=== PATIENT | male | born 1975 ===

== ENCOUNTER 2024-01-06 22:10 | Emergency (ER) | payer OTHER, SELFPAY ==
[2024-01-06 22:21] VITALS: BP 112/71; PULSE 85; RESP 14; TEMP 36.8; O2SAT 97; BMI 31.9
[2024-01-06 22:52] LABS: IDNOW Serial# 6674DD1D; Strep A Nucleic Acid Negative (Negative)
[2024-01-06 23:18] LABS: COVID-19 Test Negative (Negative); IDNOW Serial# 08D9AD1C
[2024-01-06 23:19] LABS: IDNOW Serial# 152EDE1D; Influenza A Negative (Negative); Influenza B2 Negative (Negative)
--- NOTE | 2024-01-07 00:10 | ED_ITS ---
HPI - General Adult General Chief complaint: General Medical Stated complaint: throat issues Time Seen by Provider: 01/07/24 00:03 Source: patient and family Mode of arrival: ambulatory Limitations: no limitations History of Present Illness HPI narrative: 48 yo male no PMH exposed to sick niece here with runny nose and mild sore throat but mostly c/o bilateral swollen lymph nodes in neck that have gotten bigger right greater than left, subjective fever. MD complaint: swollen glands Onset (ago): week(s) (1) Location: neck Radiation: non-radiation Severity: mild Quality: dull Pain Consistency: intermittent Relieving factors: none Exacerbating factors: none Associated symptoms: fever/chills Treatments prior to arrival: none Related Data Previous Rx's Medication Instructions Recorded azithromycin 250 mg tablet 250 mg PO DAILY 4 days #4 tabs 01/07/24 Allergies Allergy/AdvReac Type Severity Reaction Status Date / Time Penicillins [PENICILLINS] Allergy Mild HIVES Verified 01/06/24 22:27 sulfamethoxazole Allergy Mild HIVES Verified 01/06/24 22:27 [From BACTRIM] trimethoprim [From BACTRIM] Allergy Mild HIVES Verified 01/06/24 22:27 penicillin G Allergy Unknown swelling Verified 01/06/24 22:27 Review of Systems Review of Systems: Constitutional : pos Fever, No Chills, No Fatigue ENT/Mouth : pos sore throat, pos Rhinorrhea, pos lymphadenopathy Eyes: No Eye Pain, No Swelling, No Redness Cardiovascular : No Chest Pain, No SOB, No Dyspnea on Exertion Respiratory : No Cough, No Sputum Gastrointestinal : No Nausea, No Vomiting, No Diarrhea, No abdominal Pain Genitourinary : No Dysuria, No Urinary Frequency, No Hematuria, Musculoskeletal : No joint pain, No Myalgias, No Joint Swelling Skin : No Skin Lesions, No rash Neuro : No Weakness, No Numbness, No Dizziness, positive Headache Psych : No Anxiety/Panic, No Depression All other systems reviewed and are negative [facility] Past Medical History Attestation statement: The following information was validated with the patient. Medical History No pertinent past medical history Social History Social History (Updated 01/07/24 @ 00:16 by Danae Brown DO) Patient Tobacco Use Status: Never used Tobacco Physical Exam ED Vital Signs: Vital Signs - 24 hr 01/06/24 22:21 Temperature 98.3 F Pulse Rate 85 Respiratory Rate 14 Blood Pressure 112/71 Pulse Oximetry 97 BMI result Body Mass Index 31.9 Appearance: Alert. Oriented X3. No acute distress. Eyes: Pupils equal, round and reactive to light. ENT: Pharynx normal. no erythema or exudates Neck: bilateral anterior cervical chain lymphadenopathy noted ttp R > L R is about 2cm no submandibular or sublingual swelling no stridor normal ROM CVS: Normal heart rate and rhythm. Pulses normal. Respiratory: No respiratory distress. Breath sounds normal. Abdomen: Soft and nontender. Skin: Skin warm and dry. Normal skin color. Extremities: No lower extremity edema. Neuro: Oriented X 3. No motor deficit. No sensory deficit. Medical Decision Making Medical Decision Making [facility] Narrative: 48 yo male with no sig PMH here with c/o URI symptoms and worsening anterior c ervical lymphadenopathy at this time will need viral panel, strep throat and start on abx with close PCP follow up and to follow up if no improvement after abx treatment. Differential Diagnosis Differential Diagnoses: The differential diagnosis associated with the presentation includes viral, lymphadenitis Admission/Observation Consideration of admission/observation: Escalation of care including admission/observation considered Lab Data [facility] Lab Attestation statement: I reviewed the patient's lab results. Labs: Lab Results 01/06/24 Range/Units 22:38 COVID-19 ([place]) Negative (Negative) COVID-19 Clin Com See Note Influenza Type A ([place]) Negative (Negative) Influenza Type B ([place]) Negative (Negative) Influenza A & B Note See Note S. pyogenes GrpA [place] Negative (Negative) Independent Historian Clinical information obtained from an independent historian. History obtained from or confirmed by: Spouse Prescription Management I considered prescription management with: Antibiotic Discharge Plan Discharge Clinical Impression: Acute lymphadenitis Patient Disposition: Home, Self-Care Instructions: Adenitis (ED) Additional Instructions: return if no improvement in swelling. finish all antiobitics. return if swelling worsens or you have difficulty breathing. you should follow up with your doctor after the antibiotics are done and the lymph node has not improved. Regrese si no mejora la hinchaz?n. Termine todos los antibi?ticos. Regrese si la hinchaz?n empeora o tiene dificultad para respirar. debe realizar un seguimiento con trejo m?dico despu?s de que se terminen los antibi?ticos y el ganglio linf?maine no haya froylan. Prescriptions: New azithromycin 250 mg tablet 250 mg PO DAILY 4 Days Qty: 4 0RF Rx Instructions: start on day 2 of therapy Print Language: [place]
[2024-01-07] MEDS: Azithromycin 500 MG TABLET PO (00:23)
[2024-01-07 00:27] VITALS: PULSE 87; RESP 16; O2SAT 97
== END 2024-01-07 00:27 | disposition home or self-care (01) ==
PROVIDERS: Emergency Provider Emergency Medicine; PCP Family Medicine
DX: L04.0 Acute lymphadenitis of face, head and neck (principal); R50.9 Fever, unspecified; Z11.52 Encounter for screening for COVID-19
CPT/HCPCS: 87502; 87635; 87651; 99282; 99283